=== PATIENT | male | born 1940 | race Caucasian/White ===

== ENCOUNTER 2016-10-24 10:31 | Emergency (ER) | payer MEDICARE, OTHER ==
[2016-10-24] MEDS ORDERED: IPRATROPIUM/ALBUTEROL 3 ML NEB INH STA (11:58)
[2016-10-24] MEDS ORDERED: IPRATROPIUM/ALBUTEROL 3 ML NEB INH ONE (12:08)
[2016-10-24] MEDS ORDERED: DEXAMETHASONE 10 MG/ML VIAL PO STA (13:04)
[2016-10-24] MEDS ORDERED: CHERRY SYRUP 10 ML UDC PO ONE (13:11)
[2016-10-24] MEDS ORDERED: DEXAMETHASONE 10 MG/ML VIAL ONE (13:11)
== END 2016-10-24 13:17 | disposition home or self-care (01) ==
DX: J44.0 Chronic obstructive pulmonary disease with (acute) lower respiratory infection (principal); J20.9 Acute bronchitis, unspecified; Z87.891 Personal history of nicotine dependence; I10 Essential (primary) hypertension; I48.91 Unspecified atrial fibrillation; Z79.01 Long term (current) use of anticoagulants; Z79.82 Long term (current) use of aspirin; E11.9 Type 2 diabetes mellitus without complications; Z79.4 Long term (current) use of insulin
CPT/HCPCS: 71020; 94640; 99283; 99284; A9270; J7620